=== PATIENT | male | born 1940 | race Caucasian/White ===

== ENCOUNTER → 2017-04-30 | Outpatient (CLI) | payer OTHER ==
--- NOTE | 2017-04-30 14:01 | PCVCIMAG ---
APPROVED REPORT Study performed: 04/30/2017 13:21:16 EXAM: Comprehensive 2D, Doppler, and color-flow Echocardiogram Patient Location: Echo lab Status: routine BSA: 1.81 HR: 54 bpmBP: 162/70 mmHg Rhythm: Bradycardia Other Information Study Quality: Adequate Indications Pacemaker CAD Ischemic Cardiomyopathy, ICD, CABG 2D Dimensions LVEF(%): 48.62 (>50%) IVSd: 11.70 (7-11mm) LVDd: 54.90 mm PWd: 11.50 (7-11mm) LVDs: 41.28 (25-40mm) Left Atrium: 44.01 (27-40mm) Aortic Root: 30.99 mm LV Single Plane 4CH: 52.36 % LV Single Plane 2CH: 48.63 %Velasquez's LVEF: 50.49 % Biplane EF: 50.9 % Volumes Left Atrial Volume (Systole) Single Plane 4CH: 94.99 mLSingle Plane 2CH: 67.69 mL LA ESV Index: 45.00 mL/m2 Aortic Valve AoV Peak Colton.: 1.50 m/s AO Peak Gr.: 8.99 mmHgLVOT Max P.86 mmHg LVOT Max V: 0.68 m/s Mitral Valve E/A Ratio: 1.5 MV Decel. Time: 260.37 ms MV E Max Colton.: 0.59 m/s MV A Colton.: 0.40 m/s IVRT: 152.25 ms Pulmonary Valve PV Peak Colton.: 0.77 m/sPV Peak Gr.: 2.36 mmHg Pulmonary Vein P Vein S: 0.44 m/sP Vein A: 0.27 m/s P Vein D: 0.58 m/sP Vein A Dur.: 155.7 msec P Vein S/D Ratio: 0.76 Tricuspid Valve TR Peak Colton.: 3.04 m/s TR Peak Gr.: 36.99 mmHg Left Ventricle The left ventricle is normal size. Mild hypokinesis involving the base of the inferior wall. Mild Left ventricular systolic function is at the lower limits of normal. LVEF is 50%. Grade I - abnormal relaxation pattern. Right Ventricle The right ventricle is normal size. The right ventricular systolic function is normal. Atria Left atrium is moderately dilated. Right atrium is mildly dilated. Aortic Valve Mild aortic valve sclerosis. No aortic regurgitation is present. There is no aortic valvular stenosis. Mitral Valve Moderate mitral annular calcification. Sclerotic leaflets without stenosis. Mild to moderate mitral regurgitation. No evidence of mitral valve stenosis. Tricuspid Valve The tricuspid valve is normal in structure. Mild to moderate tricuspid regurgitation with PAP of 45 mmHg. Pulmonic Valve The pulmonary valve is normal in structure. Mild pulmonic regurgitation. Great Vessels The aortic root is normal in size. IVC is normal in size and collapses with >50% inspiration Pericardium There is no pericardial effusion. <Conclusion> Left ventricular systolic function is at the lower limits of normal. LVEF is 50%. Mild hypokinesis involving the base of the inferior wall. Both atria are moderately dilated. Mild aortic valve sclerosis. No aortic regurgitation or stenosis Moderate mitral annular calcification. Sclerotic leaflets without stenosis. Mild to moderate mitral regurgitation. Pulmonary artery pressure of 45mmHg There is no pericardial effusion.
--- NOTE | 2017-04-30 14:43 | PCVCIMAG ---
APPROVED REPORT Indications Bruit Stenosis Risk Factors Hyperlipidemia Doppler Spectral Velocity Analysis PSV / EDVPSV / EDV ECA (R) 102 / 8 cm/sECA (L) 212 / 11 cm/s dICA (R) 81 / 12 cm/sdICA (L) 79 / 16 cm/s Karma (R) 179 / 28 cm/smICA (L) 90 / 18 cm/s pICA (R) 151 / 16 cm/spICA (L) 114 / 18 cm/s Bulb (R) 112 / 16 cm/sBulb (L) 92 / 9 cm/s dCCA (R) 167 / 22 cm/sdCCA (L) 85 / 13 cm/s mCCA (R) 87 / 14 cm/smCCA (L) 102 / 14 cm/s Vert (R) 16 / 7 cm/sVert (L) 59 / 10 cm/s ICA/CCA 1.34 ICA/CCA 2.05 Basic Measurements Blood Pressure: Pulses: Right Left RightLeft Brachial(Sitting) 156/[id number]/70mmHgTemporal Real Time B-Mode Imaging Vert. (R)AntegradeVert. (L)Antegrade Findings The right carotid bulb has severe calcified plaque. The right proximal internal carotid artery shows 60-70% stenosis. The right common carotid artery shows 50-60% stenosis. The right external carotid artery shows <50% stenosis. The left carotid bulb has moderately severe calcified plaque. The left proximal internal carotid artery shows 50-60% stenosis. The left common carotid artery shows 50-60% stenosis. The left external carotid artery shows >50% stenosis. Conclusion 1. Right internal carotid artery stenosis (60-70%) 2. Left internal carotid artery stenosis (50-60%) 3. Bilateral common carotid artery stenoses (50-60%) 4. Antegrade vertebral flow
== END | disposition home or self-care (01) ==
LOC: PCVCIMAG 12:42
PROVIDERS: ATTEND Internal Medicine
DX: I35.0 Nonrheumatic aortic (valve) stenosis (principal); I34.0 Nonrheumatic mitral (valve) insufficiency; I07.1 Rheumatic tricuspid insufficiency; I37.1 Nonrheumatic pulmonary valve insufficiency; I65.23 Occlusion and stenosis of bilateral carotid arteries; I25.10 Atherosclerotic heart disease of native coronary artery without angina pectoris; I25.5 Ischemic cardiomyopathy; I48.0 Paroxysmal atrial fibrillation; I47.2 Ventricular tachycardia; E78.5 Hyperlipidemia, unspecified; I10 Essential (primary) hypertension; I44.0 Atrioventricular block, first degree; I49.3 Ventricular premature depolarization; I45.10 Unspecified right bundle-branch block; Z95.1 Presence of aortocoronary bypass graft; Z93.1 Gastrostomy status; Z79.82 Long term (current) use of aspirin; Z87.891 Personal history of nicotine dependence; Z95.810 Presence of automatic (implantable) cardiac defibrillator
CPT/HCPCS: 80061; 93005; 93306; 93880; G0463

== ENCOUNTER → 2017-11-27 | Outpatient (CLI) | payer OTHER | END | disposition home or self-care (01) | LOC: PCVCCLINIC 10:59 | DX: I25.10 Atherosclerotic heart disease of native coronary artery without angina pectoris (principal); I25.5 Ischemic cardiomyopathy; I48.0 Paroxysmal atrial fibrillation; I10 Essential (primary) hypertension; I47.2 Ventricular tachycardia; I65.23 Occlusion and stenosis of bilateral carotid arteries; R94.31 Abnormal electrocardiogram [ECG] [EKG]; E78.5 Hyperlipidemia, unspecified; Z95.810 Presence of automatic (implantable) cardiac defibrillator; Z87.891 Personal history of nicotine dependence; Z79.899 Other long term (current) drug therapy; Z79.82 Long term (current) use of aspirin | CPT/HCPCS: 80061; 93005; G0463 ==

== ENCOUNTER → 2018-06-23 | Outpatient (CLI) | payer OTHER ==
--- NOTE | 2018-06-23 09:51 | PCVCIMAG ---
APPROVED REPORT Indications Stenosis Risk Factors Hypertension: CAD, Stroke Doppler Spectral Velocity Analysis PSV / EDVPSV / EDV ECA (R) 148 / 9 cm/sECA (L) 251 / 21 cm/s dICA (R) 76 / 19 cm/sdICA (L) 74 / 17 cm/s Karma (R) 157 / 36 cm/smICA (L) 70 / 16 cm/s pICA (R) 170 / 35 cm/spICA (L) 119 / 29 cm/s Bulb (R) 149 / 21 cm/sBulb (L) 96 / 9 cm/s dCCA (R) 165 / 23 cm/sdCCA (L) 117 / 25 cm/s mCCA (R) 73 / 18 cm/smCCA (L) 117 / 17 cm/s pCCA (R) pCCA (L) 159 / 25 cm/s Vert (R) 30 / 6 cm/sVert (L) 74 / 14 cm/s ICA/CCA 1.03ICA/CCA 1.02 Basic Measurements Blood Pressure: Pulses: Right Left RightLeft Brachial(Sitting) 156/[id number]/70mmHgTemporal Real Time B-Mode Imaging Vert. (R)AntegradeVert. (L)Antegrade Findings The right carotid bulb has severe calcified plaque. The right proximal internal carotid artery shows 60-70% stenosis. The right common carotid artery shows 50-60% stenosis. The right external carotid artery shows >50% stenosis. The left carotid bulb has moderately severe plaque. The left proximal internal carotid artery shows 60% stenosis. The left common carotid artery shows 50-60% stenosis. The left external carotid artery shows >90% stenosis. Conclusion 1. Right internal carotid artery stenosis (60-70%) 2. Left internal carotid artery stenosis (50-60%) 3. Bilateral common carotid artery stenoses (50-60%) 4. Antegrade vertebral flow Similar to April 2017.
--- NOTE | 2018-06-23 10:58 | PCVCIMAG ---
APPROVED REPORT Study performed: 06/23/2018 07:59:15 EXAM: Comprehensive 2D, Doppler, and color-flow Echocardiogram Patient Location: Echo lab Status: routine BSA: 1.85 HR: 59 bpmBP: 160/70 mmHg Rhythm: NSR Other Information Study Quality: Good Risk Factors: Cardiac Risk Factors: HTN, Smoking Indications Atrial Fibrillation CAD Hypertension/HDD Ischemic cardiomyopathy, AICD, CABG 2D Dimensions IVSd: 10.88 (7-11mm)LVOT Diam: 22.88 (18-24mm) LVDd: 50.36 mm PWd: 11.63 (7-11mm)Ascending Ao: 32.41 (22-36mm) LVDs: 33.95 (25-40mm) Left Atrium: 44.29 (27-40mm) Aortic Root: 23.37 mm LV Single Plane 4CH: 54.18 % LV Single Plane 2CH: 56.46 % Biplane EF: 56.6 % Volumes Left Atrial Volume (Systole) Single Plane 4CH: 55.03 mLSingle Plane 2CH: 45.31 mL LA ESV Index: 28.00 mL/m2 Aortic Valve AoV Peak Colton.: 1.76 m/s AO Peak Gr.: 12.37 mmHgLVOT Max P.55 mmHg LVOT Max V: 0.80 m/s EPHRAIM Vmax: 1.87 cm2 Mitral Valve E/A Ratio: 0.8 MV Decel. Time: 255.22 ms MV E Max Colton.: 0.80 m/s MV A Colton.: 0.97 m/s IVRT: 79.58 ms TDI E/Lateral E': 8.89E/Medial E': 11.43 Medial E' Colton.: 0.07 m/s Lateral E' Colton.: 0.09 m/s Pulmonary Valve PV Peak Gr.: 2.20 mmHg Pulmonary Vein P Vein S: 0.54 m/sP Vein A: 0.31 m/s P Vein D: 0.50 m/sP Vein A Dur.: 121.1 msec P Vein S/D Ratio: 1.08 Tricuspid Valve TR Peak Colton.: 3.03 m/s TR Peak Gr.: 36.67 mmHg Left Ventricle The left ventricle is normal size. There is normal LV segmental wall motion. There is normal left ventricular wall thickness. The left ventricular systolic function is normal. The left ventricular ejection fraction is within the normal range. LVEF is 50-55%. Mild diastolic dysfunction is present (impaired relaxation pattern). Right Ventricle The right ventricle is normal size. The right ventricular systolic function is normal. Device lead is present in the right ventricle. Atria The left atrium size is normal. Device lead is present in the right atrium. Aortic Valve Mild aortic valve calcification No aortic regurgitation is present. There is no aortic valvular stenosis. Mitral Valve Mild mitral annular calcification. Mild mitral regurgitation. No evidence of mitral valve stenosis. Tricuspid Valve The tricuspid valve is normal in structure. Trace tricuspid regurgitation. Pulmonary artery pressure is 44 mHg. Pulmonic Valve The pulmonary valve is normal in structure. There is no pulmonic valvular regurgitation. Great Vessels The aortic root is normal in size. IVC is normal in size and collapses >50% with inspiration. Pericardium There is no pericardial effusion. <Conclusion> The left ventricular systolic function is normal. There is normal LV segmental wall motion. LVEF is 50-55%. Mild diastolic dysfunction Mild aortic valve calcification. No aortic regurgitation or stenosis Mild mitral annular calcification. Mild mitral regurgitation Trace tricuspid regurgitation. Pulmonary artery pressure of 44 mHg. There is no pericardial effusion.
== END | disposition home or self-care (01) ==
LOC: PCVCIMAG 07:49
PROVIDERS: ATTEND Internal Medicine
DX: I65.23 Occlusion and stenosis of bilateral carotid arteries (principal); I63.9 Cerebral infarction, unspecified; I25.10 Atherosclerotic heart disease of native coronary artery without angina pectoris; R55 Syncope and collapse; J44.9 Chronic obstructive pulmonary disease, unspecified; I10 Essential (primary) hypertension; I25.5 Ischemic cardiomyopathy; I50.9 Heart failure, unspecified; I47.2 Ventricular tachycardia
CPT/HCPCS: 93306; 93880

== ENCOUNTER → 2019-01-23 | Outpatient (CLI) | payer OTHER | END | disposition home or self-care (01) | LOC: PCVCCLINIC 11:00 | PROVIDERS: ATTEND Internal Medicine | DX: I25.10 Atherosclerotic heart disease of native coronary artery without angina pectoris (principal); I25.5 Ischemic cardiomyopathy; I48.0 Paroxysmal atrial fibrillation; I47.2 Ventricular tachycardia; E78.5 Hyperlipidemia, unspecified; I65.23 Occlusion and stenosis of bilateral carotid arteries; I11.0 Hypertensive heart disease with heart failure; I50.9 Heart failure, unspecified; E78.00 Pure hypercholesterolemia, unspecified; Z95.810 Presence of automatic (implantable) cardiac defibrillator | CPT/HCPCS: 36415; 80061; 93005; G0463 ==

== ENCOUNTER → 2019-07-29 | Outpatient (CLI) | payer MEDICARE, OTHER ==
--- NOTE | 2019-07-29 16:29 | PCVCIMAG ---
APPROVED REPORT Indications Stenosis Doppler Spectral Velocity Analysis PSV / EDVPSV / EDV ECA (R) 166 / 15 cm/sECA (L) 181 / 16 cm/s dICA (R) 126 / 22 cm/sdICA (L) 89 / 12 cm/s Karma (R) 136 / 25 cm/smICA (L) 98 / 18 cm/s pICA (R) 201 / 33 cm/spICA (L) 122 / 21 cm/s Bulb (R) 137 / 19 cm/sBulb (L) 89 / 13 cm/s dCCA (R) 108 / 19 cm/sdCCA (L) 85 / 15 cm/s mCCA (R) 76 / 13 cm/smCCA (L) 96 / 15 cm/s Vert (R) 87 / 13 cm/sVert (L) 52 / 11 cm/s ICA/CCA 1.86 ICA/CCA 1.27 Basic Measurements Blood Pressure: Pulses: Right Left RightLeft Brachial(Sitting) 170/63zrJe240/68mmHgTemporal Real Time B-Mode Imaging Vert. (R)AntegradeVert. (L)Antegrade Findings The right carotid bulb has severe calcified plaque. The right proximal internal carotid artery shows 60-70% stenosis. Small densely calcified mobile atheroma The right common carotid artery shows 50-60% stenosis. The right external carotid artery shows >50% stenosis. The left carotid bulb has moderately severe calcified plaque. The left proximal internal carotid artery shows 60% stenosis. The left common carotid artery shows 50-60% stenosis. The left external carotid artery shows >50% stenosis. Conclusion 1. Right internal carotid artery stenosis (60-70%). 2. Left internal carotid artery stenosis (60%) 3. Bilateral common carotid artery stenoses (50-60%) 4. Antegrade vertebral flow In comparison of the study dated June 2018, no significant differences are identified.
--- NOTE | 2019-07-29 17:04 | PCVCIMAG ---
APPROVED REPORT Study performed: 07/29/2019 15:43:18 EXAM: Comprehensive 2D, Doppler, and color-flow Echocardiogram Patient Location: Echo lab Status: routine BSA: 1.78 HR: 55 bpmBP: 170/68 mmHg Rhythm: Bradycardia Other Information Study Quality: Adequate Indications CAD Cardiomyopathy ICD 2D Dimensions IVSd: 14.58 (7-11mm) LVDd: 46.44 mm PWd: 14.38 (7-11mm)Ascending Ao: 33.76 (22-36mm) LVDs: 32.65 (25-40mm) Left Atrium: 41.65 (27-40mm) Aortic Root: 33.71 mm LV Single Plane 4CH: 54.49 % LV Single Plane 2CH: 56.25 % Biplane EF: 55.8 % Volumes Left Atrial Volume (Systole) Single Plane 4CH: 89.28 mLSingle Plane 2CH: 94.77 mL LA ESV Index: 52.00 mL/m2 Aortic Valve AoV Peak Colton.: 1.91 m/s AO Peak Gr.: 14.64 mmHgLVOT Max P.96 mmHg LVOT Max V: 0.83 m/s Mitral Valve E/A Ratio: 1.5 MV Decel. Time: 249.13 ms MV E Max Colton.: 0.91 m/s MV A Colton.: 0.62 m/s IVRT: 107.27 ms Pulmonary Valve PV Peak Colton.: 0.99 m/sPV Peak Gr.: 3.89 mmHg Pulmonary Vein P Vein S: 0.29 m/sP Vein A: 0.33 m/s P Vein D: 0.49 m/sP Vein A Dur.: 190.3 msec P Vein S/D Ratio: 0.59 Tricuspid Valve TR Peak Colton.: 3.07 m/s TR Peak Gr.: 37.65 mmHg Left Ventricle The left ventricle is normal size. There is normal LV segmental wall motion. Moderate concentric left ventricular hypertrophy. The left ventricular systolic function is normal. The left ventricular ejection fraction is within the normal range. LVEF is 55%. Grade II - pseudonormal filling dynamics. Right Ventricle The right ventricle is normal size. The right ventricular systolic function is normal. Pacemaker lead is present in the right ventricle. Atria Left atrium is moderately dilated. Right atrium is mildly dilated. Pacemaker lead is present in the right atrium. Aortic Valve Moderate aortic valve sclerosis, trileaflet. No aortic regurgitation is present. There is no aortic valvular stenosis. Mitral Valve Moderate mitral annular calcification Mild mitral regurgitation. No evidence of mitral valve stenosis. Tricuspid Valve The tricuspid valve is normal in structure. Mild tricuspid regurgitation with PAP of 44 mmHg. Pulmonic Valve The pulmonary valve is normal in structure. Mild pulmonic regurgitation. Great Vessels The aortic root is normal in size. IVC is normal in size and collapses >50% with inspiration. Pericardium There is no pericardial effusion. There is no pleural effusion. <Conclusion> The left ventricular systolic function is normal. There is normal LV segmental wall motion. LVEF is 55%. Left atrium is moderately dilated. ICD wire in right heart Moderate aortic valve sclerosis, trileaflet. No stenosis or insufficiency Moderate mitral annular calcification. Mild mitral regurgitation. Mild tricuspid regurgitation with pulmonary artery pressure of 44 mmHg. There is no pericardial effusion.
== END | disposition home or self-care (01) ==
LOC: PCVCIMAG 15:20
PROVIDERS: ATTEND Internal Medicine
DX: I65.23 Occlusion and stenosis of bilateral carotid arteries (principal); I08.1 Rheumatic disorders of both mitral and tricuspid valves; E78.5 Hyperlipidemia, unspecified; J44.9 Chronic obstructive pulmonary disease, unspecified; E78.00 Pure hypercholesterolemia, unspecified; I48.0 Paroxysmal atrial fibrillation; I25.5 Ischemic cardiomyopathy; I10 Essential (primary) hypertension; Z87.891 Personal history of nicotine dependence
CPT/HCPCS: 93306; 93880

== ENCOUNTER → 2019-07-31 | Outpatient (CLI) | payer MEDICARE, OTHER | END | disposition home or self-care (01) | LOC: PCVCCLINIC 13:30 | PROVIDERS: ATTEND Internal Medicine | DX: I25.10 Atherosclerotic heart disease of native coronary artery without angina pectoris (principal); I25.5 Ischemic cardiomyopathy; I48.0 Paroxysmal atrial fibrillation; I47.2 Ventricular tachycardia; E78.5 Hyperlipidemia, unspecified; I65.23 Occlusion and stenosis of bilateral carotid arteries; Z95.810 Presence of automatic (implantable) cardiac defibrillator | CPT/HCPCS: 36415; 80061; 93283; G0463 ==